=== PATIENT | male | born 1935 | race Caucasian/White ===

== ENCOUNTER 2018-05-06 10:49 | Inpatient (IN) | payer MEDICARE, MEDICAID ==
[2018-05-06] MEDS ORDERED: Amiodarone 360 MG IVPREMIX* 360 MG/200 ML BAG IV ONE (11:27)
[2018-05-06] MEDS ORDERED: Amiodarone 150 MG IVPREMIX* 150 MG/100 ML BAG IV ONE (11:27)
[2018-05-06] MEDS ORDERED: NS 0.9% 1000 ML* 1,000 ML IV SCH (11:30)
[2018-05-06 11:37] LABS: Hematocrit 36 % (42-52); Hemoglobin 11.9 g/dl (14.0-18.0); Mean Corpuscular HGB Conc 33 g/dl (31-36); Mean Corpuscular Hemoglobin 36 pg (27-31); Mean Corpuscular Volume 109 fL (80-94); Mean Platelet Volume 9.4 um3 (7.4-10.4); Platelet Count 193 10^3/ul (150-450); Red Cell Distribution Width 19 % (10.5-15); White Blood Count 10.2 10^3/ul (3.5-10.8)
--- NOTE | 2018-05-06 11:38 | ED ---
Syncope/Near Syncope - HPI Summary HPI Summary: Level 5 caveat: Unable to obtain complete HPI due to Dementia. The pt is an 83 y/o male accompanied by two family members presenting to [facility] s /p a syncope episode at 10:00 am today. As per the halfway staff, the pt was found unresponsive in his chair. Prior to that, he fell from a wheelchair. He reports nausea and SOB. he has a Mhx of Afib and CHF. He arrives from [facility]. Family members decline chest compressions and incubation at bedside but accept IV access and medications. - History Of Current Complaint Time Seen by Provider: 05/06/18 11:01 Hx Obtained From: Patient, Family/Water Pump Installer Hx From Patient Unobtainable Due To: Dementia Onset/Duration: Sudden Onset, Resolved - Syncope Timing: Seconds Context: Witnessed Associated Head Trauma: No Aggravating Factor(s): Nothing Alleviating Factor(s): Nothing - Allergies/Home Medications Allergies/Adverse Reactions: Allergies Allergy/AdvReac Type Severity Reaction Status Date / Time No Known Allergies Allergy Verified 07/18/12 16:30 PMH/Surg Hx/FS Hx/Imm Hx Previously Healthy: No - Level 5 caveat: Unable to obtain complete Mhx due to dementia. Endocrine/Hematology History: Reports: Hx Anticoagulant Therapy - "maybe" Coumadin Denies: Hx Diabetes, Hx Thyroid Disease Cardiovascular History: Reports: Hx Congestive Heart Failure, Hx Hypertension, Hx Pacemaker/ICD, Other Cardiovascular Problems/Disorders - pacer/defib,chf,cad , LBBB Respiratory History: Reports: Other Respiratory Problems/Disorders - exertional Denies: Hx Asthma, Hx Chronic Obstructive Pulmonary Disease (COPD) GI History: Reports: Other GI Disorders - diarrhea History: Reports: Other Problems/Disorders - lack sensation with urination Denies: Hx Renal Disease Musculoskeletal History: Reports: Other Musculoskeletal History - uses a walker , weakness Neurological History: Reports: Hx Dementia - Alzheimer's, Other Neuro Impairments/Disorders Denies: Hx Seizures Psychiatric History: Denies: Hx Substance Abuse - Cancer History Cancer Type, Location and Year: None reported - Surgical History Surgery Procedure, Year, and Place: pacer with defib,ruptured testical - Immunization History Immunizations Up to Date: Yes Infectious Disease History: No Infectious Disease History: Denies: Hx Hepatitis, Hx Human Immunodeficiency Virus (HIV), Traveled Outside the [place] in Last 30 Days - Family History Known Family History: Positive: Unknown - Social History Occupation: Retired Lives: [facility] Alcohol Use: None Substance Use Type: Reports: None Smoking Status (MU): Former Smoker Review of Systems - ROS Summary Review of Systems Summary: Level 5 caveat: Unable to obtain complete ROS due to dementia. Constitutional: Other - Positive: Fall from wheelchair Positive: Shortness Of Breath Positive: Nausea Positive: Syncope All Other Systems Reviewed And Are Negative: No Physical Exam - Summary Physical Exam Summary: Level 5 caveat: Unable to obtain complete PE due to dementia General: The pt is demented. No pain distress Skin: Pallor noted but is otherwise warm and dry Head: normal Eyes: EOMI, ANTONIETA ENT: normal Neck: supple, nontender Respiratory: CTA, breath sounds present. Crackles in the bases bilaterally Cardiovascular: RRR Abdomen: soft, nontender Bowel: present Musculoskeletal: normal, strength/ROM intact. No pedal edema. Neurological: sensory/motor intact, A&O x3 Psychological: affect/mood appropriate Triage Information Reviewed: Yes Vital Signs On Initial Exam: Initial Vitals Temp Pulse Resp BP Pulse Ox 96.8 F 145 20 81/56 95 05/06/18 10:58 05/06/18 10:58 05/06/18 10:58 05/06/18 10:58 05/06/18 10:58 Vital Signs Reviewed: Yes Diagnostics - Vital Signs Vital Signs Temp Pulse Resp BP Pulse Ox 05/06/18 10:58 96.8 F 145 20 81/56 95 - Laboratory Result Diagrams: 05/06/18 11:24 05/06/18 11:24 Lab Statement: Any lab studies that have been ordered have been reviewed, and results considered in the medical decision making process. - Radiology CXR Radiology Interpretation Completed By: Radiologist - IMPRESSION: FINDINGS MOST CONSISTENT WITH CONGESTIVE HEART FAILURE. The ED physician reviewed this radiology report. - EKG 11:07 Cardiac Rate: Tachycardia Summary of EKG Findings: Wide complex tachycardia at a rate of 146 bpm 12:16 EKG Rhythm: Atrial Fibrillation Summary of EKG Findings: Rapid Afib at 106 bpm with wide complexes Course/Dx Course Of Treatment: Medications reviewed. Allergies noted. DISCUSSED WITH CARDIOLOGY, DR RAIN. ADMIT TO ICU, DR BEST WHO SAW THE PATIENT IN THE ED. - Diagnoses Differential Diagnosis/HQI/PQRI: Positive: Seizure Provider Diagnoses: Rapid atrial fibrillation, CHF (congestive heart failure), Syncope, Elevated troponin - Physician Notifications Discussed Care of Patient With: Rocio Martínez - Hospitalist Time Discussed With Above Provider: 11:26 Instructed by Provider To: Other - Dr. Martínez recommended administering Amiodarone ,consulting the charging machine operator, and deferring labs. 11:39 - I discussed the care of the pt with Dr. Eulalia Rain-charging machine operator who recommended admnistering Amiodarone & Magnesium, interrogating the pacemaker and then admiting the pt. 12:00 hrs- Dr. Radha Martínez- hospitalist agreed to admit the pt and ecommended onsulting Dr. Concepción Best- meat stuffer 12:05- Dr. Best agreed to see the pt in the ED - Critical Care Time Critical Care Time: 30-74 min Discharge - Sign-Out/Discharge Documenting (check all that apply): Patient Departure - Discharge Plan Condition: Guarded Disposition: ADMITTED TO [facility] Referrals: Asya Cummings MD [Primary Care Provider] - - Billing Disposition and Condition Condition: GUARDED Disposition: Admitted to [facility] - Attestation Statements Document Initiated by Scribe: Yes Documenting Scribe: Sarah Weaver Provider For Whom Ok is Documenting (Include Credential): Dr. Jake Leonard MD Scribe Attestation: Sarah Crump , scribed for Dr. Jake Leonard MD on 05/06/18 at 1309. Scribe Documentation Reviewed: Yes Provider Attestation: The documentation as recorded by the Sarah bolivar accurately reflects the service I personally performed and the decisions made by me, Dr. Jake Leonard MD
[2018-05-06] MEDS ORDERED: Magnesium Sulfate 2 GM IV* 2 GM/50 ML BAG IVPB ONE (11:41)
[2018-05-06 11:44] LABS: INR 3.3 (0.77-1.02)
[2018-05-06 11:51] LABS: EGFR Non-African American 34.1 (>60)
--- NOTE | 2018-05-06 11:52 | RAD ---
INDICATION: Syncope tachycardia. COMPARISON: Comparison is made with a prior study from July 18, 2012. TECHNIQUE: A portable view of the chest was obtained. FINDINGS: The heart is enlarged and appears increased in size from the prior exam. There is a dual-chamber cardiac pacemaker defibrillator present. There is a large hiatal hernia present. There is diffuse prominence of the interstitial markings and small bilateral pleural effusions most consistent with congestive heart failure. IMPRESSION: FINDINGS MOST CONSISTENT WITH CONGESTIVE HEART FAILURE.
[2018-05-06] MEDS ORDERED: NS 0.9% 1000 ML* 1,000 ML IV ONE (12:05)
[2018-05-06 12:07] LABS: ABS Basophils 0 10^3/ul (0-0.2); ABS Eosinophils 0 10^3/ul (0-0.6); ABS Monocytes 0.7 10^3/ul (0-0.8); ABS Neutrophils 8.5 10^3/ul (1.5-7.7); ABS Nucleated RBC 0.1 10^3/ul; Eosinophil % 0 % (0-6); Lymphocyte % 9.7 % (25-47); Nucleated Red Blood Cells % 1.2
[2018-05-06] MEDS ORDERED: Acetaminophen TAB* 325 MG PO PRN (12:38)
[2018-05-06] MEDS ORDERED: Furosemide TAB* 20 MG PO SCH (13:00)
[2018-05-06] MEDS ORDERED: Phytonadione Oral Solution* 5 MG/25 ML UDC PO ONE (13:20)
[2018-05-06] MEDS ORDERED: Furosemide IV* 10 MG/ML 2 ML VIAL (20 MG) IV ONE (13:28)
[2018-05-06 13:57] LABS: Urine Appearance Cloudy; Urine Blood Negative (Negative); Urine Color Amber; Urine Ketones Negative (Negative); Urine Protein 2+(100 mg/dL) (Negative); Urine Red Blood Cell 2+(6-10/hpf) (Absent); Urine Urobilinogen Negative (Negative); Urine White Blood Cell Trace(0-5/hpf) (Absent)
[2018-05-06] MEDS: DOXYcycline IV* 100 MG in NS 0.9% 250 ML* 250 ML IVPB SCH (14:10)
[2018-05-06] MEDS ORDERED: Morphine VIAL* 10 MG/ML 1 ML VIAL IM ONE (14:21)
[2018-05-06] MEDS ORDERED: Morphine VIAL* 4 MG/ML VIAL (1 ml vial) IV ONE ×4 (14:21→19:00)
[2018-05-06] MEDS ORDERED: Ondansetron INJ* 2 MG/ML VIAL IV ONE (14:39)
--- NOTE | 2018-05-06 15:57 | HP ---
HISTORY AND PHYSICAL: DATE OF ADMISSION: 05/06/18 CHIEF COMPLAINT: Syncope. HISTORY OF PRESENT ILLNESS: 83-year-old male, [facility] resident, with history of atrial fibrillation, left bundle branch block, history of ventricular tachycardia, who was sent into the emergency room from [facility] for evaluation after a syncopal episode. The patient had an episode of feeling lightheaded, he tried to sit down or lean against the trash can, landed on the floor, picked himself up to the chair. The patient was found to be unresponsive by [facility] staff in his chair. He has complained of nausea and shortness of breath. The patient is unable to provide much history due to underlying dementia. He reports nausea; however, denies any other complaints. He appears to be sleepy. History is obtained from the patient's sister, who is also his healthcare proxy. The patient at baseline is not very active. As per the sister, he mostly sleeps all day. He has significant cardiac history, he is status post AICD placement for ventricular tachycardia. He is following up with Cardiology as an outpatient. He was found to be tachycardic in the emergency room with heart rate in the 150s when he came in. He was also found to be significantly hypoxemic. His initial EKG showed a wide complex tachycardia at a rate of 146. He was given fluids at low rate. He was found to have significantly elevated BNP. Cardiology was consulted from the emergency room. Amiodarone was recommended and he was started on amiodarone drip. He was also given magnesium. The patient to have interrogation of the pacemaker. The patient was admitted to intensive care unit for close monitoring given his hypotension and tachycardia. The patient is DNR/DNI. He has MOLST forms filled. He also expressed that he did not want to be hospitalized for his condition unless it is reversible. Labs also were suggestive of anemia with hemoglobin of 11.1, macrocytic anemia. His potassium is slightly elevated at 5.3. He was also found to have elevated anion gap metabolic acidosis. He did have elevated BUN and creatinine. His creatinine in 2013 was around 1.0. His troponin was elevated at 0.33. BNP significantly elevated at 2.76. PAST MEDICAL HISTORY: 1. Atrial fibrillation. 2. Ventricular tachycardia, status post AICD placement. 3. COPD. 4. Constipation. 5. BPH. 6. Coronary artery disease. 7. Chronic pain. 8. Alzheimer's dementia. 9. Cardiomyopathy. 10. Spinal stenosis. 11. Osteoporosis. PAST SURGICAL HISTORY: Status post AICD placement. MEDICATIONS AT HOME: 1. Ventolin. 2. Finasteride 5 mg daily. 3. Furosemide 20 mg every other day. 4. Polyethylene glycol 17 g for constipation as needed. 5. Prilosec 20 mg daily. 6. Senna 2 tablets as needed for constipation. 7. Spiriva once daily. 8. Spironolactone 25 mg every other day. 9. Multivitamins 1 tablet daily. 10. Metoprolol 25 mg b.i.d. 11. Pradaxa 150 mg b.i.d. 12. Symbicort 160/4.5 one inhalation b.i.d. 13. Ensure supplementation. 14. Propafenone 150 mg 1 tablet 3 times a day. 15. Acetaminophen 325 mg 2 tablets q.4 hours p.r.n. 16. Benzocaine lozenges as needed for sore throat. 17. Enema as needed. ALLERGIES: No known drug allergies. FAMILY HISTORY: Noncontributory to current complaint. SOCIAL HISTORY: The patient lives in [facility]. His sister is his healthcare proxy. He is a former smoker, quit in 2009. Denies alcohol or drug abuse. REVIEW OF SYSTEMS: Unable to complete review of systems due to the patient's underlying dementia. PHYSICAL EXAMINATION GENERAL: The patient is in bed, in no apparent distress, slightly drowsy; however, wakes up to verbal stimuli. VITAL SIGNS: Temperature 99, pulse 97 beats per minute, respiratory rate 20 per minute, O2 sat 95% on 2 L, blood pressure 57/31 with a MAP of 35. HEENT: Pupils equal and reactive to light. Mucous membranes moist. LUNGS: Diminished air entry bilaterally, no wheeze, crackles at the bases. CARDIOVASCULAR: Tachycardic, S1 and S2 present, regular. ABDOMEN: Soft, nontender, nondistended. Bowel sounds present. EXTREMITIES: Trace edema bilaterally. NEUROLOGIC: Alert, awake. No focal deficits. SKIN: No rash. DIAGNOSTIC STUDIES/LAB DATA: WBC count 10.2, hemoglobin 11.9, hematocrit 36, MCV 109, platelet count 193 with a left shift. INR 3.30. Sodium 136, potassium 5.3, chloride 103, bicarb 21, anion gap 12, BUN 36, creatinine 1.90, glucose 169, lactic acid 4.2. Troponin 0.33. T bili elevated at 2.10, AST 102 , ALT 104. BNP 2176. TSH 3.56. Chest x-ray was personally reviewed by me - evidence of pulmonary vascular congestion noted bilaterally. Pacemaker leads seen. Poor quality film. No evidence of dense consolidation noted. EKG on arrival suggestive of wide complex tachycardia at a rate of 146. Repeat EKG showed rapid AFib/Aflutter at 106 with underlying wide complex QRS. ASSESSMENT: 83-year-old male with history of ventricular tachycardia, status post AICD placement, brought in for evaluation of altered mental status, possible syncopal episode, found to be in atrial fibrillation with rapid ventricular rate. The patient also appears to be fluid overloaded. 1. Syncope. 2. Atrial fibrillation with rapid ventricular rate. 3. Ventricular tachycardia, status post AICD. 4. Congestive heart failure. 5. Macrocytic anemia. 6. Hyperkalemia. 7. Acute renal failure. 8. Hypotension secondary to cardiogenic shock. 9. Elevated troponins. 10. Elevated bilirubin and elevated liver function tests. PLAN: 1. Cardiovascular: The patient with history of ventricular tachycardia, now with wide complex and also with AFib and Aflutter with tachycardia and hypotension. The patient started on amiodarone drip. Will titrate amiodarone drip to control tachycardia. The patient with mild hyperkalemia. The patient also received magnesium in the ED. Continues to be tachycardic and hypotensive. Given fluid overload situation, doing fluids at 50 cc per hour, not doing a bolus at this time. AICD to be interrogated. The patient denied any shocks through his AICD. Cardiology, Dr. Fuller has been consulted. Elevated troponin secondary to heart failure, stress ischemia. 2. Neuro: The patient is alert, awake, has baseline dementia. Able to protect airway. He is on trazodone, which will be continued. 3. Respiratory: The patient with history of COPD, not in exacerbation at this time. We will continue with bronchodilators. Continue with O2 supplementation. 4. Renal: Hyperkalemia, renal failure secondary to shock. Lactic acid is also elevated. Hyperkalemia, no treatment needed at this time. Monitor urine output closely. 5. GI: The patient with elevated T bili, AST and ALT suggestive of possible congestive hepatopathy from underlying heart failure. INR is elevated likely secondary to liver dysfunction. We will administer vitamin K. No evidence of active bleeding at this time. 6. Heme: The patient with macrocytic anemia. Also has history of macrocytic anemia with elevated MCV seen in 2013. We will check B12 and folate. TSH is within normal limits. He might also have underlying liver issues that might have resulted in macrocytic anemia. White count is not elevated, does have left shift. He is not on Coumadin. INR elevated likely secondary to liver failure. We will administer vitamin K. 7. Infectious Disease: The patient was hypothermic on arrival, temperature 98 now. We will send septic workup. No source of sepsis noted at this time. We will empirically cover with antibiotics. 8. Musculoskeletal: Frequent positioning to prevent pressure ulcers. Pressure ulcer prophylaxis. 9. Metzger catheter inserted given bedridden status and for hemodynamic monitoring. 10. The patient is DNR/DNI. No aggressive measures, MOLST form verified. 11. The patient's sister is his healthcare proxy, at bedside. D/w Dr Vo, bedside RN Plan of care was discussed in detail with the patient`s sister. Patient wanted comfort care measures only as per sister as reflected on Molst forms. Will initiate patient on Morphine drip for comfort, alleviation of pain from AICD shocking. TIME SPENT: Total time spent performing admission was about 60 minutes. [id number]/[facility] #: [id number] ZAINAB
--- NOTE | 2018-05-06 16:22 | CONS ---
CC: Dr. Mukherjee; Dr. Fuller; Hospitalist Service; Dr. Garay CARDIOLOGY CONSULT: DATE OF CONSULT: 05/06/18 HISTORY OF PRESENT ILLNESS: I was asked by hospitalist service to see this 83-year- old male patient with known history of severe ischemic cardiomyopathy with last reported ejection fraction of the lef t ventricle 11% by an echo done in 2013. A nuclear Myoview stress test also done a few years ago doc umented the patient to have severe cardiomyopathy, ischemic, done in 2009 with no ischemia. His myoc ardial infarction is old. The patient does have ICD, history of DVT, history of ischemic cardiomyopa thy, history of atrial fibrillation, history of V-tach, history of dementia. The patient is currentl y DNI and DNR. He was brought from nursing facility because he had a fall. In the emergency room, t here are concerns for wide complex tachycardia of ventricular tachycardia. Emergency room initiated amiodarone IV and he was hospitalized, admitted to the intensive care unit. I have discussed him wit h Dr. Mckeon, the arboriculture instructor, as well as with the family members, who were at the bedside. The rachna ent is currently sleepy, but he can be arousable. He is in narrow complex tachycardia, probably AFib, heart rate about 130. He is on amiodarone IV. There was no history of chest pain. It is not immed iately clear the circumstances of the fall. In the emergency room, blood pressure was low 70 with a pulse of 130, temperature 97.9, and respiratory rate 26. No nausea, no vomiting, no fever, no chills , no swelling in the lower extremities, no hematochezia is appreciated. PAST MEDICAL HISTORY: Extensive, including congestive heart failure, DVT, severe ischemic cardiomyop athy, paroxysmal AFib, V-tach, COPD, peripheral vascular disease, left bundle branch block, ICD impla ntation, depression, alcoholism, dementia, prostatic hypertrophy, and coronary artery disease. PAST SURGICAL HISTORY: Pacemaker implantation, January 2017, [employer]. ICD implantation in 2009 gen weeks to nonsustained V-tach. MEDICATIONS: As an outpatient include: 1. Propafenone 150 mg 3 times a day. 2. Pradaxa 150 mg twice a day. 3. Finasteride 5 mg daily. 4. Symbicort. 5. Spironolactone 25 mg every other day. 6. Lasix 20 mg Tuesday, Tuesday, Tuesday. 7. Spiriva. 8. Ventolin. 9. Restoril. 10. Metoprolol 25 mg twice a day. 11. Omeprazole 20 mg daily. 12. Oxygen 2 L. ALLERGIES: No known drug allergies. FAMILY HISTORY: Probably, father had a history of myocardial infarction, probably age 50. SOCIAL HISTORY: Lives at assisted living. Retired. History of smoking, quit in 2009. History of C OPD. No history of alcohol abuse. No drug abuse. PHYSICAL EXAMINATION: Sleepy, but arousable. Vitals: As listed above. Narrow complex on the monit or, tachycardia, heart rate 130, possible atrial fibrillation. Head and Neck Exam: Normocephalic, at raumatic head. Ears, nose, and throat essentially benign. Neck is supple. JVP is not elevated. Cat ngs: Diminished air entry at the bases, but no significant rales or wheeze. Heart: Tachycardic, S1 , S2. Systolic murmur in the apex, grade 2/6. Abdomen: Benign. Positive bowel sounds. Extremitie s: No edema, no cyanosis, no clubbing. CUSTOMER SALES SERVICE MANAGER: Difficult to evaluate. DIAGNOSTIC STUDIES/LAB DATA: Labs showed the following: White blood cell 10.2, hemoglobin 11.9, hem atocrit 36, platelets 193. Sodium 136, potassium 5.3, chloride 103, total CO2 21, BUN 36, creatinine 1.90, lactic acid 4.2. AST 102, ALT 104. Troponin 0.33, CK 37, CRP 125, BNP 2176. TSH of 3.56. Chest x-ray reported the patient to have congestive heart failure. EKG as described above. Initial EKG in the emergency room, wide complex tachycardia consistent with V-tach. IMPRESSION: The patient is an 83-year-old patient who is DNR/DNI with: 1. Presentation status post fall, concerns for ventricular tachycardia as the initiating factor here . 2. Severe ischemic cardiomyopathy with last reported ejection fraction of the left ventricle 11%. 3. Congestive heart failure with significantly low blood pressure, concerns for cardiogenic shock. 4. Atrial fibrillation, now with narrow complex tachycardia. 5. Coronary artery disease. 6. History of ventricular tachycardia. 7. Peripheral vascular disease. 8. Dementia and alcoholism by history. 9. Chronic obstructive pulmonary disease. 10. Long use of tobacco consumption, although he quit in the past. 11. Abnormal EKG as described. PLAN: The patient is in endstage cardiomyopathy. Prognosis is very poor and grave at the present ti me. This was explained at length to the family in the presence with Dr. Mckeon in the ICU room. The y understand his critical terminal cardiac condition. At the present time, he is DNR, he is DNI. Ba sed on all of the above, supportive care at the present time. I agree with amiodarone IV. Hopefully , this will help in controlling his heart rate. Follow up very closely on his electrolytes, BUN and creatinine. Lasix wisely because of his low blood pressure to be used. Any further recommendations will be pending his clinical progress, which is very critical at the present time. I answered all th eir concerns and questions up to their satisfaction. TIME SPENT: More than half of at least 60+ minutes was in the education, counseling mode, face-to-fa ce explaining of the above, further recommendations, and discussing this patient with Dr. Aisha prado the emergency room. [id number]/[facility] #: [id number]
[2018-05-06] MEDS: Albuterol HFA INHALER* 8 gm MDI INH SCH (18:43)
[2018-05-06] MEDS ORDERED: Morphine PCA 5 MG/ML * Titrate per Protocol PCA SCH (20:00)
[2018-05-06 23:14] VITALS: BP 72/50
[2018-05-07] MEDS: Albuterol HFA INHALER* 8 gm MDI INH SCH ×2 (04:13→07:22)
[2018-05-07] MEDS: DOXYcycline IV* 100 MG in NS 0.9% 250 ML* 250 ML IVPB SCH (04:13)
[2018-05-07] MEDS ORDERED: Morphine INJ* 4 MG/ML 1 ML SYRINGE (NEW SYRINGE VERSION) IV ONE (05:40)
[2018-05-07] MEDS ORDERED: Finasteride TAB* 5 MG PO SCH (09:00)
--- NOTE | 2018-05-07 11:07 | DS ---
DISCHARGE SUMMARY/EXPIRATION SUMMARY: DATE OF ADMISSION: 05/06/18 DATE OF EXPIRATION: 05/07/18 at 6 a.m. REASON FOR ADMISSION: Syncopal episode, persistent V-tach. BRIEF HOSPITALIZATION COURSE: Patient is an 83-year-old male group home resident with history of severe ischemic cardiomyopathy with last ejection fraction of 11% noted on echo done in 2013. The patient also noted to have severe ischemic cardiomyopathy and history of myocardial infarction. He had ICD placement and also has history of DVT and he has history of V-tach and had ICD placement. Patient is DNR/DNI. He was brought in by from emergency room after a fall at group home. He was initiated on IV amiodarone. He continued to have persistent V-tach. Only family he has is sister and nephew. Patient has MOLST form filled and did not want any aggressive measures, opted to be comfort care. He did not want any interventions, did not even want hospitalization. Cardiology was consulted. Dr. Fuller has seen the patient while in the ICU. Continued him on IV drip. He continued to be hypotensive and was drowsy. He was subsequently placed on Morphine drip for comfort. Patient this morning on 05/07/18 at 6 a.m. Family were notified. This is brief summary of hospitalization. Refer to previously dictated history and physical and consultation reports for further details. [id number]/[facility] #: [id number] MTDD
== END 2018-05-07 05:45 | disposition expired | DRG 309 ==
LOC: ED 10:49 → ICU 13:29
PROVIDERS: ADMIT Internal Medicine; ATTEND Internal Medicine
DX: I47.2 Ventricular tachycardia (principal); N17.9 Acute kidney failure, unspecified; R57.0 Cardiogenic shock; T68.XXXA Hypothermia, initial encounter; J44.9 Chronic obstructive pulmonary disease, unspecified; E87.5 Hyperkalemia; I25.5 Ischemic cardiomyopathy; I95.9 Hypotension, unspecified; I50.9 Heart failure, unspecified; I48.91 Unspecified atrial fibrillation; G30.9 Alzheimer's disease, unspecified; F02.80 Dementia in other diseases classified elsewhere, unspecified severity, without behavioral disturbance, psychotic disturbance, mood disturbance, and anxiety; Z66 Do not resuscitate; Z51.5 Encounter for palliative care; I44.7 Left bundle-branch block, unspecified; D53.9 Nutritional anemia, unspecified; I73.9 Peripheral vascular disease, unspecified; R09.02 Hypoxemia; K59.00 Constipation, unspecified; N40.0 Benign prostatic hyperplasia without lower urinary tract symptoms; I25.10 Atherosclerotic heart disease of native coronary artery without angina pectoris; G89.29 Other chronic pain; M48.00 Spinal stenosis, site unspecified; R74.8 Abnormal levels of other serum enzymes; R94.5 Abnormal results of liver function studies; M81.0 Age-related osteoporosis without current pathological fracture; X58.XXXA Exposure to other specified factors, initial encounter; F10.21 Alcohol dependence, in remission; W18.30XA Fall on same level, unspecified, initial encounter; Z95.810 Presence of automatic (implantable) cardiac defibrillator; Z79.1 Long term (current) use of non-steroidal anti-inflammatories (NSAID); Z79.899 Other long term (current) drug therapy; Z87.891 Personal history of nicotine dependence; Z86.718 Personal history of other venous thrombosis and embolism; Y92.129 Unspecified place in nursing home as the place of occurrence of the external cause
CPT/HCPCS: 36415; 71045; 80053; 81003; 81015; 82550; 82553; 82607; 82746; 83605; 83690; 83735; 83880; 84443; 84484; 85025; 85610; 86140; 87040; 87077; 87086; 87150; 93005; 96374; 99283; A9270-GY; J0282; J1940; J2270; J2405; J3475